=== PATIENT | male | born 1975 | race Two or more races ===

== ENCOUNTER 2021-01-16 11:33 | Emergency (ER) | payer BC ==
[~2021-01-16] VITALS: Ht 182.9 cm; Wt 88.5 kg
--- NOTE | 2021-01-16 11:36 | NUR ---
TO ER BED 1, C/O CP AN HOUR AGO, PLACED TO MONITOR AND GOWN, AWAITING MD EDWARDS
--- NOTE | 2021-01-16 12:03 | NUR ---
CALLED LAB TO REMIND BLOOD DRAW
--- NOTE | 2021-01-16 12:03 | NUR ---
LAB AT BEDSIDE
--- NOTE | 2021-01-16 12:08 | NUR ---
RAD AT BEDSIDE
[2021-01-16 12:14] LABS: BASOPHILS % (AUTO) 0.8 % (0.0-2.0); EOSINOPHILS % (AUTO) 1.5 % (0.0-6.0); HEMATOCRIT 44 % (39-51); HEMOGLOBIN 15.2 g/dL (13.5-17.5); LYMPHOCYTES # (AUTO) 1.2 K/uL (0.8-4.8); LYMPHOCYTES % (AUTO) 22.6 % (20.0-44.0); MEAN CORPUSCULAR HGB CONC 35 g/dl (31.0-36.0); MEAN CORPUSCULAR VOLUME 92 fL (80-96); MONOCYTES # (AUTO) 0.6 K/uL (0.1-1.30); MONOCYTES % (AUTO) 10.8 % (2.0-12.0); NEUTROPHILS # (AUTO) 3.4 K/uL (1.8-8.9); NEUTROPHILS % (AUTO) 64.3 % (43.0-81.0); PLATELET COUNT (AUTO) 199 K/uL (150-450); RED BLOOD CELL COUNT(AUTO) 4.72 MIL/uL (4.5-6.0); WHITE BLOOD COUNT (AUTO) 5.2 K/uL (4.3-11.0)
[2021-01-16] MEDS ORDERED: METOPROLOL TARTRATE INJ 5 MG/5 ML AMPUL ONE ×2 (12:15→13:44)
[2021-01-16 12:20] LABS: CALCIUM, SERUM 8.5 mg/dL (8.5-10.1); CARBON DIOXIDE 26 mmol/L (21-32); CHLORIDE 103 mmol/L (98-107); CREATININE 1.1 mg/dL (0.6-1.3); GLUCOSE 103 mg/dL (74-106); POTASSIUM 4.2 mmol/L (3.5-5.1); SODIUM SERUM 138 mmol/L (136-145); UREA NITROGEN, BLOOD 16 mg/dL (7-18)
[2021-01-16] MEDS: METOPROLOL TARTRATE INJ 5 MG/5 ML AMPUL IV ONE (12:21)
--- NOTE | 2021-01-16 12:24 | NUR ---
DR OLEA WANTS THE HR TO SLOW DOWN TO 50-60 IN PREPARATION FOR CORONARY ANGIOGRAM
--- NOTE | 2021-01-16 13:02 | NUR ---
DR OLEA WANTS THE HR TO SLOW DOWN TO 50-60 IN PREPARATION FOR CORONARY ANGIOGRAM REMAINING 2.5ML IVP GIVEN, MD AWARE OF CURRENT HR AND ADVISED TO CALL CT
--- NOTE | 2021-01-16 13:07 | NUR ---
CALLED CT TO INFORM THAT PT IS READY, CT WAITING FOR NURSE TO BE THERE DURING THE PROCEDURE
--- NOTE | 2021-01-16 13:16 | NUR ---
WENT TO CT
[2021-01-16] MEDS ORDERED: IOHEXOL-350 100 ML VIAL IV ONE (13:20)
[2021-01-16] MEDS ORDERED: IV NS 0.9% 250 ML IV ONE (13:21)
[2021-01-16] MEDS: METOPROLOL TARTRATE INJ 5 MG/5 ML AMPUL IVP PRN (13:40)
[2021-01-16] MEDS: NITROGLYCERIN 0.4 MG/TAB BOTTLE SL ONE (13:45)
[2021-01-16 15:17] VITALS: BP 142/90
--- NOTE | 2021-01-16 16:24 | NUR ---
IV removed. Catheter intact and site benign. Pressure and 4x4 applied to site. No bleeding noted.IV removed. Catheter intact and site benign. Pressure and 4x4 applied to site. No bleeding noted.
== END 2021-01-16 16:26 | disposition home or self-care (01) ==
LOC: ER 11:38
DX: R07.89 Other chest pain (principal); I10 Essential (primary) hypertension; Z88.2 Allergy status to sulfonamides
CPT/HCPCS: 36415; 71045; 75574; 80048; 84484; 85025; 93005 ×3; 96374; 96376; 99285; J3490 ×2; J7050; Q9967